=== PATIENT | male | born 1965 ===

== ENCOUNTER 2018-02-15 00:32 | Emergency (ER) | payer BC ==
[2018-02-15 00:47] VITALS: RESP 18; O2SAT 100
[2018-02-15] MEDS ORDERED: Sodium Chloride 0.9% 1,000 ML IV STA (02:07)
[2018-02-15] MEDS ORDERED: Sodium Chloride 0.9% 1,000 ML IV SCH (02:15)
[2018-02-15 02:28] LABS: BASO # 0.1 K/uL (0.0-0.2); BASO % 0.4 % (0.0-2.0); EOS # 0.1 K/uL (0.0-0.7); EOS % 0.5 % (0.0-4.0); HEMOGLOBIN 13.2 g/dL (12.0-18.0); LYMPH # 1.3 K/uL (1.0-4.3); LYMPH % 8.9 % (20.0-40.0); MEAN CELL VOLUME 62.4 fl (80.0-94.0); MEAN CORPUSCULAR HEMOGLOBIN 19.8 pg (27.0-31.0); MEAN CORPUSCULAR HGB CONC 31.8 g/dL (33.0-37.0); MEAN PLATELET VOLUME 9.2 fl (7.2-11.7); MONO # 0.7 K/uL (0.0-0.8); MONO % 5.2 % (0.0-10.0); NEUT # 11.9 K/uL (1.8-7.0); PLATELET COUNT 261 K/uL (130-400); RBC 6.66 Mil/uL (4.40-5.90); RED CELL DISTRIBUTION WIDTH 16.1 % (11.5-14.5)
[2018-02-15 02:37] LABS: ALB/GLOB RATIO 1.3 (1.0-2.1); ALBUMIN 4.1 g/dL (3.5-5.0); ALT/SGPT 49 U/L (21-72); AST/SGOT 28 U/L (17-59); BLOOD UREA NITROGEN 18 mg/dl (9-20); CALCIUM 9.3 mg/dL (8.4-10.2); GFR NON-AFRICAN AMERICAN > 60
[2018-02-15 03:39] LABS: BASOPHIL 1 % (0-2); LYMPHOCYTE 13 % (20-50); MONOCYTE 5 % (0-10); NEUTROPHIL 80 % (42-75); PLATELET ESTIMATE NORMAL (NORMAL); REACTIVE LYMPHOCYTES 1 % (0-0); TOTAL CELLS COUNTED 100
[2018-02-15 03:41] LABS: ANISOCYTOSIS SLIGHT; MICROCYTOSIS SLIGHT
--- NOTE | 2018-02-15 03:54 | ED PDOC ---
HPI: Psych/Substance Abuse Time Seen by Provider: 02/15/18 01:42 Chief Complaint (Nursing): Substance Abuse Chief Complaint (Provider): Dizziness History Per: Patient, Family (at bedside) History/Exam Limitations: no limitations Onset/Duration Of Symptoms: Hrs (x1) Current Symptoms Are (Timing): Better Additional Complaint(s): 52 year old male presents to the ED for evaluation after smoking a vape for the first time tonight and immediately afterwards feeling "funny". He had never smoked before and was offered this by his friend. He felt anxious and dizzy then experienced a brief episode of palpations, prompting him to call EMS. Symptoms have improved since onset, but he thinks vape was laced and is requesting drug screening. Denies chest pain, shortness of breath, abdominal pain, nausea, vomiting and/or fever/chills. PMD Dr. Long Past Medical History Reviewed: Historical Data, Nursing Documentation, Vital Signs Vital Signs: Last Vital Signs Temp 99.2 F 02/15/18 00:38 Pulse 119 H 02/15/18 00:38 Resp 18 02/15/18 00:38 BP 166/101 H 02/15/18 00:38 Pulse Ox 100 02/15/18 00:38 - Medical History PMH: No Chronic Diseases - Surgical History Surgical History: No Surg Hx - Family History Family History: States: Unknown Family Hx - Home Medications Home Medications: Ambulatory Orders Medication Instructions Recorded Meclizine [Meclizine*] 25 mg PO Q6 #12 tab 02/15/18 - Allergies Allergies/Adverse Reactions: Allergies Allergy/AdvReac Type Severity Reaction Status Date / Time No Known Allergies Allergy Verified 02/15/18 00:47 Review of Systems ROS Statement: Except As Marked, All Systems Reviewed And Found Negative Cardiovascular: Negative for: Chest Pain Respiratory: Negative for: Shortness of Breath Gastrointestinal: Negative for: Abdominal Pain Neurological: Positive for: Dizziness Physical Exam - Reviewed Nursing Documentation Reviewed: Yes Vital Signs Reviewed: Yes - Physical Exam Comments: GENERAL APPEARANCE: Patient is awake, alert, oriented x 3, in no acute distress. Resting comfortably, interacting with family. SKIN: Warm, dry; (-) cyanosis; (-) rash. EYES: (-) conjunctival pallor, (-) scleral icterus. ENMT: Airway patent (-) stridor; mucous membranes are moist. NECK: Supple, FROM (-) tenderness, (-) stiffness, (-) meningismus, (-) lymphadenopathy. CHEST AND RESPIRATORY: (-) rales, (-) rhonchi, (-) wheezes; breath sounds equal bilaterally. Respirations even and nonlabored. HEART AND CARDIOVASCULAR: (-) irregularity ABDOMEN AND GI: Soft; (-) tenderness (-) distention (-)guarding. EXTREMITIES: (-) deformity. NEURO AND PSYCH: Mental status as above. game developer: Pupils equal and reactive; EOMI and painless; (-) facial asymmetry; tongue and uvula midline. Strength and smile symmetric. Speech: clear. Gait: steady. - Laboratory Results Result Diagrams: 02/15/18 02:25 02/15/18 02:25 - ECG O2 Sat by Pulse Oximetry: 100 (RA) Pulse Ox Interpretation: Normal Medical Decision Making Medical Decision Makin Impression: dizziness, medical screening exam Plan --EKG --Alcohol --UDS --CMP --CBC --NS IV 0230 EKG: NSR @ 97bpm (-) ST elevation, QTc 406 Labs reviewed (+) hyperglycemia. Patient notes he ate a large meal [employer] and denies any history of DM. Will repeat accucheck s/p IVF 0455 Utox: negative Repeat accucheck: 191 Repeat BP: 127/61 Repeat HR: 81 On re-evaluation, patient reports resolution of symptoms. On exam, patient remains AAOx3, in no acute distress. Lungs clear to auscultation, cardiac RRR, abdomen soft, non-tender, repeat neuro exam shows no focal findings. Lab/Diagnostic results d/w the patient in great detail. Diagnosis of dizziness, medical screening exam d/w the patient. Based on history, exam and diagnostic results, plan will be for outpatient follow up. Patient instructed to follow-up with pmd / referral provided / the clinic in 1- 2 days without fail. Advised to take medication as prescribed. Return to the emergency room at any time for any new or worsening symptoms. Patient states he fully agrees with and understands discharge instructions. States that he agrees with the plan and disposition. Verbalized and repeated discharge instructions and plan. I have given the patient opportunity to ask any additional questions. Scribe Attestation: Documented by Sarah Fuentes acting as a scribe for Raven Crawford PA-C Provider Scribe Attestation: All medical record entries made by the Scribe were at my direction and personally dictated by me. I have reviewed the chart and agree that the record accurately reflects my personal performance of the history, physical exam, medical decision making, and the department course for this patient. I have also personally directed, reviewed, and agree with the discharge instructions and disposition. Disposition - Clinical Impression Clinical Impression: Dizziness - Patient ED Disposition Is Patient to be Admitted: No Counseled Patient/Family Regarding: Studies Performed, Diagnosis, Need For Followup - Disposition Referrals: Franki Duvall MD [Medical Doctor] - Disposition: Routine/Home Disposition Time: 04:55 Condition: STABLE Additional Instructions: The emergency medical care you received today was directed towards the acute presenting symptoms. If you were prescribed any medication, please fill it and give as directed. It may take several days for your symptoms to resolve. Return to the Emergency Department at any time if symptoms worsen, do not improve, or if any other problems arise. Please contact your doctor in 2 days for re-evaluation and follow up / or call one of the physicians/clinics you have been referred to that are listed on the Patient Visit Information form that is included in your discharge packet. Bring any paperwork you were given at discharge with you along with any medications to your follow up visit. Our treatment cannot replace ongoing medical care by a primary care provider (PCP) outside of the emergency department. Prescriptions: Meclizine [Meclizine*] 25 mg PO Q6 #12 tab Instructions: Dizziness, Nonvertigo, (DC) Forms: [facility] (Omani) Print Language: ITALIAN - POA Present On Arrival: None Results - Lab Results Lab Results: 02/15/18 02/15/18 02/15/18 04:29 03:58 03:05 WBC RBC Hgb Hct MCV MCH MCHC RDW Plt Count MPV Neut % (Auto) Lymph % (Auto) Elliott % (Auto) Eos % (Auto) Baso % (Auto) Neut # (Auto) Lymph # (Auto) Elliott # (Auto) Eos # (Auto) Baso # (Auto) Neutrophils % (Manual) Lymphocytes % (Manual) Reactive Lymphs % Monocytes % (Manual) Basophils % (Manual) Platelet Estimate Anisocytosis (manual) Microcytosis (manual) Sodium Potassium Chloride Carbon Dioxide Anion Gap BUN Creatinine Est GFR ( Amer) Est GFR (Non-Af Amer) POC Glucose (mg/dL) 191 H 290 H Random Glucose Calcium Total Bilirubin AST ALT Alkaline Phosphatase Total Protein Albumin Globulin Albumin/Globulin Ratio Urine Opiates Screen Negative Urine Methadone Screen Negative Ur Barbiturates Screen Negative Ur Phencyclidine Scrn Negative Ur Amphetamines Screen Negative U Benzodiazepines Scrn Negative U Oth Cocaine Metabols Negative U Cannabinoids Screen Negative Alcohol, Quantitative 02/15/18 02/15/18 02:25 02:25 WBC 14.0 H RBC 6.66 H Hgb 13.2 Hct 41.6 MCV 62.4 L MCH 19.8 L MCHC 31.8 L RDW 16.1 H Plt Count 261 MPV 9.2 Neut % (Auto) 85.0 H Lymph % (Auto) 8.9 L Elliott % (Auto) 5.2 Eos % (Auto) 0.5 Baso % (Auto) 0.4 Neut # (Auto) 11.9 H Lymph # (Auto) 1.3 Elliott # (Auto) 0.7 Eos # (Auto) 0.1 Baso # (Auto) 0.1 Neutrophils % (Manual) 80 H Lymphocytes % (Manual) 13 L Reactive Lymphs % 1 H Monocytes % (Manual) 5 Basophils % (Manual) 1 Platelet Estimate Normal Anisocytosis (manual) Slight Microcytosis (manual) Slight Sodium 139 Potassium 4.5 Chloride 104 Carbon Dioxide 21 L Anion Gap 19 BUN 18 Creatinine 0.7 L Est GFR ( Amer) > 60 Est GFR (Non-Af Amer) > 60 POC Glucose (mg/dL) Random Glucose 316 H Calcium 9.3 Total Bilirubin 0.9 AST 28 ALT 49 Alkaline Phosphatase 111 Total Protein 7.3 Albumin 4.1 Globulin 3.2 Albumin/Globulin Ratio 1.3 Urine Opiates Screen Urine Methadone Screen Ur Barbiturates Screen Ur Phencyclidine Scrn Ur Amphetamines Screen U Benzodiazepines Scrn U Oth Cocaine Metabols U Cannabinoids Screen Alcohol, Quantitative < 10
[2018-02-15 04:18] LABS: BARBITURATES, UR NEGATIVE (NEGATIVE); BENZODIAZEPINES, UR NEGATIVE (NEGATIVE); OPIATES, UR NEGATIVE (NEGATIVE); PHENCYCLIDINE, UR NEGATIVE (NEGATIVE)
[2018-02-15 04:59] VITALS: BP 127/61; PULSE 81; TEMP 98.1
--- NOTE | 2018-02-15 08:02 | CARD ---
APPROVED REPORT Date of service: 02/15/2018 <Conclusion> Normal sinus rhythm Normal ECG
== END 2018-02-15 04:59 | disposition home or self-care (01) ==
LOC: H.ER 00:32
DX: R42 Dizziness and giddiness (principal)
CPT/HCPCS: 80053; 82948; 85025; 93005; 96360; 99284; G0480; J7030